=== PATIENT | female | born 1995 | race Caucasian/White ===

== ENCOUNTER 2018-03-25 21:13 | Emergency (ER) | payer BC, OTHER ==
[~2018-03-25] VITALS: Ht 162.6 cm; Wt 73.6 kg
[2018-03-25 21:21] VITALS: TEMP 36.9; Ht 162.6 cm; Wt 73.6 kg
[2018-03-25 22:04] VITALS: BP 118/72; PULSE 74; O2SAT 100
[2018-03-25] MEDS ORDERED: BCPILLS PO (22:05)
--- NOTE | 2018-03-26 00:02 | EMERGENCY ROOM VISIT NOTE ---
History First contact with patient: 21:23 Chief Complaint: FOREIGNBODY ANY BODY PART Stated Complaint: CONDOM STUCK IN VAGINA History of Present Illness The patient is a 22 year old female who presents to the Emergency Room with complaints of a condom stuck in her vagina. The patient reports that she had sex this morning. She was unable to find the condom, including performing a vaginal exam while in the shower this afternoon. The patient denies any pelvic pain, bleeding or other drainage. Review of Systems 6 system review was performed and was negative except for pertinent positives and negatives as indicated in history of present illness Past Medical/Surgical History Medical Problems: (1) No significant past medical history Surgical Problems: (1) No history of previous surgery Family History Unremarkable Social History Smoking Status: Never Smoker Alcohol Use: occasionally Marital Status: single Occupation Status: [employer] student Current/Historical Medications Scheduled Control Pills ( Control Pills), 1 TAB PO DAILY Physical Exam Vital Signs Date Time Temp Pulse Resp B/P (MAP) Pulse Ox O2 Delivery O2 Flow Rate FiO2 03/25/18 22:04 74 16 118/72 100 Room Air 03/25/18 21:21 36.9 93 18 152/95 100 Room Air Physical Exam CONSTITUTIONAL: Healthy and well nourished. Alert and oriented X 3 with positive affect. GASTROINTESTINAL: Bowel sounds present in all quadrants. No abdominal tenderness to palpation. 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 Normal external genitalia. Speculum was able to visualize all the way to the vaginal cuff and cervix without any visible foreign body. Finger sweep was then performed with no palpable foreign body. The patient had no discomfort with pelvic exam. MUSCULOSKELETAL: Full range of motion of all joints without discomfort. INTEGUMENTARY: No rash or other significant dermatologic conditions noted. NEUROLOGIC: No focal neurologic deficits noted. Medical Decision & Procedures ED Course Patient history and physical exam were performed. Nurse's notes were reviewed. Vital signs were reviewed and were also normal. Pelvic exam was unable to visualize any condom. Speculum exam and finger sweep was performed. The patient was encouraged to follow-up with [facility] or [facility] if she starts to develop any pain or malodorous drainage. The patient was happy with plan of care, and voiced understanding of all discharge instructions. Medical Decision Blood Pressure Screening Patient's blood pressure: Normal blood pressure Impression Primary Impression: Evaluation for vaginal foreign body Departure Information Dispostion Home / Self-Care Condition GOOD Forms HOME CARE DOCUMENTATION FORM, IMPORTANT VISIT INFORMATION Patient Instructions [facility] Additional Instructions If you develop pelvic pain or bad odor, follow-up with [facility] or [facility] for further evaluation.
== END 2018-03-25 22:05 | disposition home or self-care (01) ==
LOC: C.EDB 21:15 → C.EDA 22:05
DX: Z03.89 Encounter for observation for other suspected diseases and conditions ruled out (principal); Z79.3 Long term (current) use of hormonal contraceptives